=== PATIENT | female | born 1925 | race Caucasian/White ===

== ENCOUNTER → 2016-04-22 | Outpatient (REF) ==
[~2016-04-22] MED LIST: FENOGLIDE40 MG; NEURONTIN100 MG/CAP PO; PRILOSEC 20MG20 MG PO; TOPROL XL 25MG25 MG PO; ULTRAM 50MG TAB50 MG PO
== END ==
LOC: ZLAB.WCH 10:30
DX: Z01.89 Encounter for other specified special examinations (principal)

== ENCOUNTER → 2016-04-25 | Outpatient (REF) | LOC: ZLAB.WCH 10:09 | DX: Z01.89 Encounter for other specified special examinations (principal) ==